=== PATIENT | male | born 1950 | race Caucasian/White ===

== ENCOUNTER 2017-03-15 15:00 | Inpatient (IN) | payer MEDICARE, OTHER ==
--- NOTE | ~2017-03-15 | EEG ---
Electroencephalogram [place] [address] [address] [place]. [address] NAME: REYNOLD PANIAGUA : 50 STATUS : DIS IN PAT#: [id number] AGE: 66 ADM/REG DATE : 03/15/17 MR#: [id number] REPORT SERV DATE: 04/02/17 DICTATED BY: DASIA TINAJERO DATE: 04/02/17 REPORT STATUS : Draft TRANSCRIBED BY: NAEL DATE: 04/02/17 ELECTROENCEPHALOGRAPHY REPORT REQUESTING PHYSICIAN: Tanya Wick M.D. INTERPRETING PHYSICIAN: Dasia Tinajero MD. AGE: 66. REASON FOR EEG: Altered mental status, rule out seizures. 23 surface electrodes, 10-20 international placement was used. The patient was noted to be poorly responsive throughout the study, restless. The background activity consisted of low voltage, 6 to 7 cycles per second scattered throughout. The patient was extremely restless. Overall the pattern showed generalized slowing biphasic and triphasic waveforms compatible with metabolic encephalopathy. Biphasic and triphasic waveforms were present throughout the recording, most prominently seen in the anterior head regions. The patient's secured entrance monitor showed sinus tachycardia, heart rate of approximately 125 beats per minute. IMPRESSION: MARKEDLY ABNORMAL EEG CHARACTERIZED BY PRESENCE OF SLOWING AND DISORGANIZATION OF CEREBRAL ACTIVITY WITH PRESENCE OF BIPHASIC AND TRIPHASIC WAVEFORMS COMPATIBLE WITH METABOLIC ENCEPHALOPATHY. CLINICAL CORRELATION IS RECOMMENDED. ANGÉLICA/NAEL Dasia Tinajero MD / [id number] CC: Tanya Wick M.D.
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
--- NOTE | ~2017-03-15 | OP ---
Record Of Operation [facility] [address]. [address] NAME: REYNOLD PANIAGUA : 50 STATUS : DIS IN PAT#: [id number] AGE: 66 ADM/REG DATE : 03/15/17 MR#: [id number] REPORT SERV DATE: 03/18/17 DICTATED BY: JORDY MADDEN DATE: 03/18/17 REPORT STATUS : Draft TRANSCRIBED BY: MODDari DATE: 03/18/17 DATE OF PROCEDURE: 03/17/2017 PREOPERATIVE DIAGNOSIS: Multiple myeloma. POSTOPERATIVE DIAGNOSIS: Multiple myeloma. PROCEDURE: Right IJ Vas-Cath. SURGEON: Jordy Madden M.D. BIOMETRICS HEAD: None. ANESTHESIA: Local. 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 He needs a Vas-Cath for plasmapheresis, so he was consented for intervention. DESCRIPTION OF PROCEDURE: After informed consent was obtained, the patient's right neck and chest were prepped and draped in the usual sterile fashion. Ultrasound-guided access was obtained of the right internal jugular vein. The ultrasound image was documented on the chart. I passed the wire centrally. I made a small skin incision. I dilated the tract and inserted the Vas-Cath. The catheter was sutured in place. After it aspirated and flushed well. The patient tolerated the procedure well without any intraprocedural complications noted. ENRIKE/NAEL Jordy Madden M.D. / [id number] CC: Tanya Wick M.D. UNKNOWN
--- NOTE | ~2017-03-15 | CN ---
Consultation Report [facility] [address] [place]. [address] NAME: REYNOLD PANIAGUA : 50 STATUS : ADM IN PAT#: [id number] AGE: 66 ADM/REG DATE : 03/15/17 MR#: [id number] REPORT SERV DATE: 03/17/17 DICTATED BY: DASIA HERRMANN DATE: 03/17/17 REPORT STATUS : Draft TRANSCRIBED BY: MODDari DATE: 03/17/17 NEUROLOGICAL CONSULTATION DATE OF CONSULTATION: 03/17/2017 LOCATION: [facility], bed 8. REASON FOR NEUROLOGICAL CONSULTATION: Acute encephalopathy, rule out seizures. HISTORY OF PRESENT ILLNESS: This is a 66-year-old white male with a known history of multiple myeloma that has been refractory to treatment, undergoing chemotherapy, treated by Dr. Bishnu Gutierrez of Oncology. The patient was found in the morning on the day of admission by his family confused. The patient apparently was difficult to arouse, was curled up in bed. It was not clear whether the patient may have taken an accidental overdose of his medications since the bottles of OxyContin and other medications were scattered around his bed. The patient apparently has been on Decadron 20 mg daily and cyclophosphamide, not clear whether he actually had started the cyclophosphamide. The patient was transferred from the regular floor to [facility] in view of confusion, agitation, and the patient was not following commands. 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 As per patient's chart, he has had radiation therapy in 2015 and additional history of hypertension, apparently not on medication. Had a history of herpes zoster in 2003, presently the patient is on Zovirax. PAST SURGICAL HISTORY: Left knee surgery in 2009, cystoscopy, bone-marrow biopsy, orthopedic surgery in the past not clear which area of the spine or extremity. SOCIAL HISTORY: The patient lost his recently to ovarian cancer. He lives alone and is retired. There is no history of smoking as per family. There is no history of alcohol or drug use. FAMILY HISTORY: Significant history of cancer in patient's mother and also history of coronary artery disease. ALLERGIES: NO KNOWN ALLERGIES. HOME MEDICATIONS: As per the patient's chart included Zovirax 400 mg b.i.d.; Decadron 20 mg for 20 days, not clear whether the patient was decreasing his dose; Zofran 4 mg p.o. b.i.d.; oxycodone 5 to 10 mg p.o. q.6 hours and total of 15 mg at bedtime for sleep; cyclophosphamide 400 mg p.o. on day 1, 8 and 15, not clear whether the patient has started it. Also the patient has been on pomalidomide 4 mg daily and repeat every 21 days. Consultation Report [place] [address] [facility] [address] NAME: REYNOLD PANIAGUA : 50 STATUS : ADM IN PAT#: [id number] AGE: 66 ADM/REG DATE : 03/15/17 MR#: [id number] REPORT SERV DATE: 03/17/17 DICTATED BY: DASIA HERRMANN DATE: 03/17/17 REPORT STATUS : Draft TRANSCRIBED BY: NAEL DATE: 03/17/17 REVIEW OF SYSTEMS: Impossible to obtain from the patient. He was confused, restless, and sedated. PHYSICAL EXAMINATION: VITAL SIGNS: Blood pressure was 114/56, pulse was 97, respirations 30, and temperature was 98.8. The patient's weight was 168.71 pounds and BMI was 21. HEAD AND NECK: Examination showed him to be normocephalic. There was no evidence of trauma. Eye exam: Sclerae were not icteric. Conjunctiva were pink. ENT exam: Tongue appeared midline. The patient was not cooperative, but was sleeping. Inspection of the oropharynx showed no evidence of atrophy of the tongue. Neck was supple. There was no Kernig or Brudzinski. Cervical range of motion appeared intact. The patient had no difficulty when he was restless moving his head from side to side. CHEST: Symmetrical. LUNGS: Appeared clear. HEART: Auscultation of the heart, the patient had sinus tachycardia with heart rate of approximately 100. ABDOMEN: Scaphoid. Bowel sounds were hyperactive. The patient had multiple loose stools. EXTREMITIES: Showed significant muscle bulk decreased, but no atrophy or fibrillation or fasciculations noted. SKIN: Appeared slightly with yellowish tinge. However, no true jaundice observed. NEUROLOGIC: The patient was sedated, restless, did not follow commands. Did not speak. Eye exam showed pupils to be small 2 to 2.5 mm, both equal, sluggishly reactive to light. Extraocular movements appear full. The patient was looking from side to side. Did not appear to have dysconjugate gaze. There was no facial asymmetry on inspection. The patient moved all four extremities with no difficulty spontaneously, however, did not follow commands. Babinski signs were not elicitable. Sensory exam: The patient withdrew to pain and stimulus appropriately. Cerebellar exam and gait could not be tested. LABORATORY STUDIES: BUN 20, creatinine 1.05, glucose 83, calcium 7.6, magnesium 2.1, phosphorus 3.9. WBC count 9.4, hemoglobin 7.3, hematocrit 21.8, and platelet count 130,000. PT/INR of 2.2. CPK 642. Troponin 0.18. TSH 3.71. Ammonia level 135. IMPRESSION: 1. Severe metabolic encephalopathy. The EEG was obtained to rule out seizures, nonconvulsive status epilepticus. I was able to review the EEG at the patient's bedside. The EEG showed signs of profound metabolic encephalopathy with diffuse slowing of biphasic and triphasic waveforms, more prominent in the anterior head regions, compatible with metabolic encephalopathy. Hyperammonemia which most likely contributes to the patient's encephalopathy. The differential also with the patient's history includes hyperviscosity syndrome secondary to his underlying cancer. 2. Progressive myeloma refractory to treatment. 3. The patient may have taken accidental overdose of his pain medications and sleeping medication- Restoril, which contributes to his hypersomnolence and confusion. The patient is being followed by Oncology. Possible plasmapheresis was discussed with the patient's family by the oncology physician. From neurological standpoint, I would Consultation Report [address] [place]. [address] NAME: REYNOLD PANIAUGA : 50 STATUS : ADM IN PAT#: [id number] AGE: 66 ADM/REG DATE : 03/15/17 MR#: [id number] REPORT SERV DATE: 03/17/17 DICTATED BY: DASIA HERRMANN DATE: 03/17/17 REPORT STATUS : Draft TRANSCRIBED BY: MODL DATE: 03/17/17 recommend to re-evaluate the patient and repeat EEG once the ammonia level shows a downward trend and if causes necessitate for EEG to be repeated. The patient does not appear to have focal neurological deficit in the patient with underlying cancer with immunosuppressive therapy on board, the patient has a risk of having an opportunistic infection including HOME HEALTH TRAVEL PT infection includes meningitis, encephalitis, and paraneoplastic syndrome. The patient's proteins were apparently very elevated. The patient's current medications include acyclovir, lactulose, Seroquel, and rifaximin, and the patient was also receiving several doses of Ativan since last night for agitation. We will follow the patient from the neurological standpoint. Thank you for allowing us to participate in this patient's care. ANGÉLICA/NAEL Dasia Herrmann MD / [id number] CC: Tanya Wick M.D. UNKNOWN
--- NOTE | ~2017-03-15 | IDS ---
Interim Discharge Summary [facility] [address] [place]. [address] NAME: REYNOLD PANIAGUA : 50 STATUS : ADM IN PAT#: [id number] AGE: 66 ADM/REG DATE : 03/15/17 MR#: [id number] REPORT SERV DATE: 03/18/17 DICTATED BY: JESUS HINKLE DATE: 03/18/17 REPORT STATUS : Draft TRANSCRIBED BY: MODL DATE: 03/18/17 ADMISSION DATE: 03/15/2017 DISCHARGE DATE: Date of transfer to [facility] is 03/16/2017. DIAGNOSES: So far, 1. 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 2. Refractory multiple myeloma, which is not responding to multiple regimens of chemotherapy. Dr. Bishnu Gutierrez is the patient's oncologist, but the patient has been seen over the weekend by Dr. Zarate. 3. Family may want to stop any more active treatment for multiple myeloma as this is refractory and they are considering comfort measures at this time. 4. 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 His mental status continues to be fairly poor; however, his respiratory status has improved as he has been on some glycopyrrolate drop that I ordered yesterday. BRIEF HOSPITAL COURSE: This patient is a very unfortunate 66-year-old gentleman with refractory multiple myeloma. He has undergone several rounds of different types of chemotherapy for this and his myeloma continues to be refractory to treatment. Dr. Bishnu Gutierrez is his oncologist. Essentially, he was admitted with acute encephalopathy and an ammonia level greater than 100 almost 135. This was noted to be because of hyperviscosity syndrome as his LFTs were not too bad. His blood cultures came back negative and he did not present a picture of septicemia at all in the beginning. However, he was transferred to [facility] as he required a lot of sedation with Ativan. He did not actually respond to Geodon or even to Haldol and had to require Ativan. While in the [facility], the patient continued to be encephalopathic and his oncologist Dr. Zarate who was covering for Dr. Gutierrez suggested that he get a plasmapheresis to see if his mental status would improve. We ordered a stat vascular consult, so that he could get a Vas-Cath for this and he did undergo plasmapheresis x1 yesterday 03/17/2017. After this, his mental status improved a little bit and according to the nurse he is a little more, even though he sedated, he is not combative. His ammonia levels have also come down after we had to put a rectal tube and give him lactulose enemas. It has come down to 87 this morning, I understand. Again, family is not sure if they will go hospice/comfort measures root only at this time, they are still in the process of trying to decide. The patient continues to be in [facility] for the reason that he is getting plasmapheresis and the number of times of plasmapheresis is to going to be dependent upon Dr. Gutierrez the oncologist suggestion and also renal suggestion. CONSULTANTS: Consults on this patient include: 1. Oncology, Dr. Bishnu Gutierrez. 2. Nephrology, Dr. Johnson Walker. Interim Discharge Summary [address] [address] NAME: REYNOLD PANIAGUA : 50 STATUS : ADM IN PAT#: [id number] AGE: 66 ADM/REG DATE : 03/15/17 MR#: [id number] REPORT SERV DATE: 03/18/17 DICTATED BY: JESUS HINKLE DATE: 03/18/17 REPORT STATUS : Draft TRANSCRIBED BY: MODL DATE: 03/18/17 3. Neurology, Dr. Dasia Herrmann for the altered mental status/acute encephalopathy itself. I am transferring this patient over to Dr. Galvan's care who is over [facility] on 03/18/2017. RRA/MODL Jesus Hinkle M.D. / [id number] CC: Jesus Hinkle M.D.
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
[2017-03-15 13:40] LABS: ER CBC TAT 0 Hrs 07 Mins; HEMATOCRIT 20.5 % (40.0-51.0); HEMOGLOBIN 6.7 g/dL (13.6-17.8); MEAN CORPUS HGB CONC 32.7 g/dL (32.0-36.0); MEAN CORPUSCULAR HEMOGLOB 30.6 pg (26.0-34.0); MEAN CORPUSCULAR VOLUME 93.6 fL (80-100); MEAN PLATELET VOLUME 8.7 fL (9.2-13.0); PLATELET COUNT 178 10/3/uL (150-400); RBC DISTRIBUTION WIDTH 18.3 % (12.0-16.0); RED CELL COUNT 2.19 10/6/uL (4.7-6.1); WHITE BLOOD CELLS 16.8 10/3/uL (4.5-10.5)
[2017-03-15 13:41] LABS: MANUAL DIFF YES %
[2017-03-15 13:46] LABS: PARTIAL THROMBO TIME 32.1 SEC (22.5-37.2); PROTIME (NOT ORD) 22.8 SEC (12.0-14.5)
[2017-03-15 13:59] LABS: CALCIUM, SERUM 7.8 MG/DL (8.5-10.4); CHEST PAIN PROFILE TAT 0 Hrs 26 Mins; CHLORIDE, SERUM 107 MMOL/L (96-112); CO2 (CARBON DIOXIDE) 23 MMOL/L (24-34); GFR AFRICAN AMERICAN 81 ML/MIN (>=60); GFR NON AFRICAN AMERICAN 70 ML/MIN (>=60); POTASSIUM, SERUM 3.8 MMOL/L (3.5-5.3); SODIUM, SERUM 136 MMOL/L (135-148); TROPONIN I 0.02 NG/ML (<0.05)
[2017-03-15 14:00] LABS: BUN (BLOOD UREA NITROGEN) 21 MG/DL (6-23); GLUCOSE, SERUM 122 MG/DL (60-99)
[2017-03-15 14:01] LABS: ACETAMINOPHEN LEVEL (TYLENOL) < 2.0 MCG/ML (10.0-20.0); ALCOHOL < 10 MG/DL (0); SALICYLATE < 1.7 MG/DL (-)
[2017-03-15 14:59] LABS: SEGMENTED NEUTROPHIL (0) 50 %; TOTAL NUCLEATED CELLS 100
[2017-03-15 15:00] LABS: BAND NEUTROPHILS 12 %; BASOPHILS 1 %; BASOPHILS ABSOLUTE (CALC) 0.17 10/3/uL (0.0-0.16); ER DIFF TAT 1 Hrs 26 Mins; IMMATURE GRANS ABSOLUTE (CALC) 1.51 10/3/uL (0.0-0.11); LYMPHOCYTES 14 %; LYMPHOCYTES ABSOLUTE (CALC) 2.35 10/3/uL (0.67-4.30); METAMYELOCYTES 7 %; MONOCYTES 12 %; MONOCYTES ABSOLUTE (CALC) 2.02 10/3/uL (0.21-1.20); MYELOCYTES 2 %; NEUTROPHILS ABSOLUTE (CALC) 10.42 10/3/uL (2.02-8.40); PLASMA CELL 2 % (0)
[~2017-03-15 15:00] MED LIST: ASAB PO; BIO-FLAX1000 MG OR; DEX4 PO; FISH OIL1200 MG PO; FORMULA PO; GINGER PO; GLUCCHONDR PO; OS500+D PO; PRILO PO; REVLIMID25 MG OR; VALTREX5 PO; VIT C PO; VIT E PO; ZOL100 PO; [UNRECOGNIZED DRUG - OTHER] PO; [UNRECOGNIZED DRUG - OTHER] PO
[2017-03-15 15:01] LABS: ANISOCYTOSIS 1+ (5-10/OIF) (0-5/OIF); MACROCYTES 1+ (5-10/OIF) (0-5/OIF); PLATELET ESTIMATE ADQ (ADEQUATE)
[2017-03-15 15:02] LABS: REACTIVE LYMPHS FEW (3-5%) (0-5%)
[2017-03-15] MEDS ORDERED: ZOFRAN4 PO (15:56)
[2017-03-15] MEDS ORDERED: CYCLOPHOSPHAMID50 MG PO (15:56)
[2017-03-15] MEDS ORDERED: DEX4 PO (16:02)
[2017-03-15] MEDS ORDERED: OXYCOD PO (16:02)
[2017-03-15] MEDS ORDERED: POMALYST4 MG PO (16:04)
[2017-03-15] MEDS ORDERED: ZOVIRAX400 MG PO (16:05)
[2017-03-15] MEDS ORDERED: REST15 PO (16:07)
[2017-03-15 16:27] LABS: AMPHETAMINES (NOT ORD) NEG (NEG); BARBITURATES (NOT ORDERED NEG (NEG); BENZODIAZEPINES (NOT ORD) POS (NEG); CANNABINOIDS (THC) NEG (NEG); COCAINE (NOT ORDERED) NEG (NEG); OPIATES POS (NEG); PHENCYCLIDINE(PCP) NEG (NEG); TRICYCLICS NEG (NEG)
[2017-03-15 22:13] LABS: ALBUMIN 1.4 G/DL (3.5-5.0); ALKALINE PHOSPHATASE 60 U/L (45-117); FERRITIN 753 NG/ML (26-388); FREE T4 1.17 NG/DL (0.76-1.46); IRON BINDING CAPACITY 119 MCG/DL (250-450); IRON, SERUM 101 MCG/DL (35-150); PHOSPHORUS, SERUM 3.2 MG/DL (2.5-4.5); SGOT(AST) 171 U/L (5-40); SGPT(ALT) 25 U/L (5-65); TOTAL PROTEIN 13.2 G/DL (6.0-8.5)
[2017-03-15 22:14] LABS: ASCORBIC ACID (UR NOT ORDER) NEG (NEG); BILIRUBIN, URINE NEGATIVE (NEG); KETONE, URINE NEGATIVE (NEG); LEUKOCYTE ESTERASE(NOT OR NEG (NEG); WBC (NOT ORDERED) (RFLEX) 1 (0-5)
[2017-03-15 22:14] LABS: DIRECT BILIRUBIN < 0.1 MG/DL (0.0-0.4); FOLATE 4.4 NG/ML (>5.2); INDIRECT BILIRUBIN(NOT ORDER) 0.2 MG/DL (0.1-0.9); TOTAL BILIRUBIN 0.3 MG/DL (0-1.2)
[2017-03-15 23:01] LABS: PROCALCITONIN 0.33 ng/mL (<0.5)
[2017-03-16 06:20] LABS: INTERNATIONAL NORMAL RATI 2.2 UNITS (-); PROTIME (NOT ORD) 24.1 SEC (12.0-14.5)
[2017-03-16 06:25] LABS: FIBRINOGEN 139 MG/DL (230-462)
[2017-03-16 06:38] LABS: ALBUMIN 1.5 G/DL (3.5-5.0); ALKALINE PHOSPHATASE 54 U/L (45-117); BUN (BLOOD UREA NITROGEN) 21 MG/DL (6-23); CALCIUM, SERUM 7.7 MG/DL (8.5-10.4); CHLORIDE, SERUM 103 MMOL/L (96-112); CO2 (CARBON DIOXIDE) 23 MMOL/L (24-34); CPK 642 U/L (0-200); CREATININE 1.09 MG/DL (0.70-1.30); GFR AFRICAN AMERICAN 82 ML/MIN (>=60); GFR NON AFRICAN AMERICAN 70 ML/MIN (>=60); GLUCOSE, SERUM 100 MG/DL (60-99); PHOSPHORUS, SERUM 3.9 MG/DL (2.5-4.5); POTASSIUM, SERUM 3.8 MMOL/L (3.5-5.3); SGOT(AST) 174 U/L (5-40); SGPT(ALT) 25 U/L (5-65); SODIUM, SERUM 133 MMOL/L (135-148); TOTAL PROTEIN 12.3 G/DL (6.0-8.5)
[2017-03-16 06:39] LABS: CK-MB 4.6 NG/ML; DIRECT BILIRUBIN 0.2 MG/DL (0.0-0.4); INDIRECT BILIRUBIN(NOT ORDER) 0.6 MG/DL (0.1-0.9); TOTAL BILIRUBIN 0.8 MG/DL (0-1.2); TROPONIN I 0.18 NG/ML (<0.05)
[2017-03-16 06:48] LABS: HEMOGLOBIN 7.9 g/dL (13.6-17.8); MEAN CORPUS HGB CONC 33.2 g/dL (32.0-36.0); MEAN CORPUSCULAR HEMOGLOB 30.4 pg (26.0-34.0); MEAN CORPUSCULAR VOLUME 91.5 fL (80-100); MEAN PLATELET VOLUME 9.2 fL (9.2-13.0); NUCLEATED RED BLOOD CELLS 1.5 /100WBC (0-0); PLATELET COUNT 154 10/3/uL (150-400); WHITE BLOOD CELLS 13.1 10/3/uL (4.5-10.5)
[2017-03-16 06:52] LABS: HEMATOCRIT 23.8 % (40.0-51.0); MANUAL DIFF YES %
[2017-03-16 07:38] LABS: RETICULOCYTE COUNT ABSOLUTE 51.1 10/3/uL (20.2-119.8)
[2017-03-16 07:58] LABS: BAND NEUTROPHILS 16 %; EOSINOPHILS 2 %; EOSINOPHILS ABSOLUTE (CALC) 0.26 10/3/uL (0.0-0.53); IMMATURE GRANS ABSOLUTE (CALC) 1.44 10/3/uL (0.0-0.11); LYMPHOCYTES 20 %; LYMPHOCYTES ABSOLUTE (CALC) 2.62 10/3/uL (0.67-4.30); METAMYELOCYTES 8 %; MONOCYTES 12 %; MONOCYTES ABSOLUTE (CALC) 1.57 10/3/uL (0.21-1.20); MYELOCYTES 3 %; NEUTROPHILS ABSOLUTE (CALC) 7.21 10/3/uL (2.02-8.40); SEGMENTED NEUTROPHIL (0) 39 %; TOTAL NUCLEATED CELLS 100
[2017-03-16 07:59] LABS: ANISOCYTOSIS 1+ (5-10/OIF) (0-5/OIF); PLATELET ESTIMATE ADQ (ADEQUATE); POLYCHROMASIA 1+ (2-5/OIF) (0-1/OIF); TEARDROP SHAPED RBCS OCC (0-2/OIF)
[2017-03-16 08:00] LABS: HELMET CELLS OCC (0-2/OIF)
[2017-03-16 17:05] LABS: HEMATOCRIT 22.6 % (40.0-51.0); HEMOGLOBIN 7.6 g/dL (13.6-17.8)
[2017-03-16 17:29] LABS: T PROTEIN (ELECT)(NOT OR 12.3 G/DL (6.0-8.5)
[2017-03-17 05:34] LABS: HEMATOCRIT 21.8 % (40.0-51.0); HEMOGLOBIN 7.3 g/dL (13.6-17.8); MEAN CORPUS HGB CONC 33.5 g/dL (32.0-36.0); MEAN CORPUSCULAR HEMOGLOB 30.7 pg (26.0-34.0); MEAN CORPUSCULAR VOLUME 91.6 fL (80-100); MEAN PLATELET VOLUME 9.2 fL (9.2-13.0); NUCLEATED RED BLOOD CELLS 2.3 /100WBC (0-0); PLATELET COUNT 130 10/3/uL (150-400); RBC DISTRIBUTION WIDTH 18.1 % (12.0-16.0); RED CELL COUNT 2.38 10/6/uL (4.7-6.1); WHITE BLOOD CELLS 9.4 10/3/uL (4.5-10.5)
[2017-03-17 05:36] LABS: MANUAL DIFF YES %
[2017-03-17 05:38] LABS: A/G RATIO 0.1 (0.7-1.9); ALBUMIN 1.4 G/DL (3.5-5.0); ALKALINE PHOSPHATASE 52 U/L (45-117); BUN (BLOOD UREA NITROGEN) 20 MG/DL (6-23); CALCIUM, SERUM 7.6 MG/DL (8.5-10.4); CHLORIDE, SERUM 108 MMOL/L (96-112); CO2 (CARBON DIOXIDE) 24 MMOL/L (24-34); CREATININE 1.05 MG/DL (0.70-1.30); GFR AFRICAN AMERICAN 85 ML/MIN (>=60); GFR NON AFRICAN AMERICAN 74 ML/MIN (>=60); GLOBULIN 9.9 G/DL (2.5-4.1); GLUCOSE, SERUM 83 MG/DL (60-99); POTASSIUM, SERUM 3.5 MMOL/L (3.5-5.3); SGOT(AST) 150 U/L (5-40); SGPT(ALT) 23 U/L (5-65); SODIUM, SERUM 134 MMOL/L (135-148); TOTAL BILIRUBIN 0.7 MG/DL (0-1.2); TOTAL PROTEIN 11.3 G/DL (6.0-8.5)
[2017-03-17 06:32] LABS: BAND NEUTROPHILS 13 %; EOSINOPHILS 2 %; EOSINOPHILS ABSOLUTE (CALC) 0.19 10/3/uL (0.0-0.53); IMMATURE GRANS ABSOLUTE (CALC) 0.38 10/3/uL (0.0-0.11); LYMPHOCYTES 15 %; LYMPHOCYTES ABSOLUTE (CALC) 1.41 10/3/uL (0.67-4.30); METAMYELOCYTES 3 %; MONOCYTES 1 %; MONOCYTES ABSOLUTE (CALC) 0.09 10/3/uL (0.21-1.20); MYELOCYTES 1 %; NEUTROPHILS ABSOLUTE (CALC) 7.33 10/3/uL (2.02-8.40); SEGMENTED NEUTROPHIL (0) 65 %; TOTAL NUCLEATED CELLS 100
[2017-03-17 06:33] LABS: ANISOCYTOSIS 1+ (5-10/OIF) (0-5/OIF); PLATELET ESTIMATE SLT DEC (ADEQUATE)
[2017-03-17 12:50] LABS: HEMATOCRIT 23.4 % (40.0-51.0); HEMOGLOBIN 7.6 g/dL (13.6-17.8)
[2017-03-17 16:01] LABS: HEMATOCRIT 24.8 % (40.0-51.0); HEMOGLOBIN 7.9 g/dL (13.6-17.8)
[2017-03-18 05:06] LABS: HEMOGLOBIN 9.2 g/dL (13.6-17.8); MEAN CORPUS HGB CONC 32.5 g/dL (32.0-36.0); MEAN CORPUSCULAR HEMOGLOB 30.9 pg (26.0-34.0); MEAN PLATELET VOLUME 10.2 fL (9.2-13.0); RBC DISTRIBUTION WIDTH 18.3 % (12.0-16.0); WHITE BLOOD CELLS 7.3 10/3/uL (4.5-10.5)
[2017-03-18 05:07] LABS: HEMATOCRIT 28.3 % (40.0-51.0); MANUAL DIFF YES %; PLATELET COUNT 80 10/3/uL (150-400); RED CELL COUNT 2.98 10/6/uL (4.7-6.1)
[2017-03-18 05:17] LABS: CALCIUM, SERUM 7.7 MG/DL (8.5-10.4); CHLORIDE, SERUM 120 MMOL/L (96-112); CO2 (CARBON DIOXIDE) 20 MMOL/L (24-34); CREATININE 0.91 MG/DL (0.70-1.30); GFR AFRICAN AMERICAN 101 ML/MIN (>=60); GFR NON AFRICAN AMERICAN 88 ML/MIN (>=60); SGPT(ALT) 17 U/L (5-65); TOTAL BILIRUBIN 0.7 MG/DL (0-1.2)
[2017-03-18 05:19] LABS: A/G RATIO 0.5 (0.7-1.9); ALBUMIN 3.1 G/DL (3.5-5.0); ALKALINE PHOSPHATASE 34 U/L (45-117); BUN (BLOOD UREA NITROGEN) 28 MG/DL (6-23); GLOBULIN 5.7 G/DL (2.5-4.1); GLUCOSE, SERUM 155 MG/DL (60-99); POTASSIUM, SERUM 5.3 MMOL/L (3.5-5.3); SGOT(AST) 77 U/L (5-40); SODIUM, SERUM 147 MMOL/L (135-148); TOTAL PROTEIN 8.8 G/DL (6.0-8.5)
[2017-03-18 06:04] LABS: ANISOCYTOSIS 1+ (5-10/OIF) (0-5/OIF); BAND NEUTROPHILS 18 %; EOSINOPHILS 2 %; EOSINOPHILS ABSOLUTE (CALC) 0.15 10/3/uL (0.0-0.53); IMMATURE GRANS ABSOLUTE (CALC) 0.22 10/3/uL (0.0-0.11); LYMPHOCYTES 9 %; LYMPHOCYTES ABSOLUTE (CALC) 0.66 10/3/uL (0.67-4.30); METAMYELOCYTES 2 %; MONOCYTES 5 %; MONOCYTES ABSOLUTE (CALC) 0.37 10/3/uL (0.21-1.20); MYELOCYTES 1 %; NEUTROPHILS ABSOLUTE (CALC) 5.91 10/3/uL (2.02-8.40); PLATELET ESTIMATE DEC (ADEQUATE); POLYCHROMASIA 1+ (2-5/OIF) (0-1/OIF); SEGMENTED NEUTROPHIL (0) 63 %; TOTAL NUCLEATED CELLS 100
[2017-03-18 09:51] LABS: A/G 0.22 RATIO (0.9-2.10); ABNORMAL PEAK 1 7.46 G/DL; ABNORMAL PEAK 1 % 60.7 % (0); ALB RELATIVE % 18.1 % (60.0-89.0); ALBUMIN (ELECTRO) 2.23 GM/DL (3.2-5.5); ALPHA 1 (ELECTRO) 0.34 GM/DL (0.1-0.4); ALPHA 1 RELAT % (NOT ORD) 2.8 % (1.0-4.0); ALPHA 2 (ELECTRO) 1.01 GM/DL (0.5-1.10); ALPHA 2 RELAT % 8.2 % (4.5-26.0); BETA GLOBULIN (SPE) 0.93 GM/DL (0.60-1.30); BETA RELATIVE % 7.6 % (9.0-22.0); GAMMA GLOBULIN (SPE) 7.79 G/DL (0.70-1.60); GAMMA RELAT % 63.3 % (6.0-22.0)
== END 2017-03-18 20:04 | disposition hospice, inpatient (51) | DRG 71 ==
LOC: ER 15:00 → 6NO 17:40 → IMCU 03-16 18:43 → 4EA 03-18 13:19
PROVIDERS: Emergency Medicine; Internal Medicine; Internal Medicine Hematology & Oncology
PROC: 30233N1 Transfusion of Nonautologous Red Blood Cells into Peripheral Vein, Percutaneous Approach (ICD-10-PCS; 2017-03-15)
PROC: 30233K1 Transfusion of Nonautologous Frozen Plasma into Peripheral Vein, Percutaneous Approach (ICD-10-PCS; 2017-03-16)
PROC: 6A550Z3 Pheresis of Plasma, Single (ICD-10-PCS; 2017-03-17)
PROC: 05HM33Z Insertion of Infusion Device into Right Internal Jugular Vein, Percutaneous Approach (ICD-10-PCS; principal; 2017-03-18)
PROC: B543ZZA Ultrasonography of Right Jugular Veins, Guidance (ICD-10-PCS; 2017-03-18)
DX: G93.41 Metabolic encephalopathy (principal); C90.00 Multiple myeloma not having achieved remission; I10 Essential (primary) hypertension; Z66 Do not resuscitate; Z92.3 Personal history of irradiation
CPT/HCPCS: 36415; 36430; 36514; 70450; 71010; 80048; 80053; 80069; 80076; 80305; 80307; 81001; 82140; 82330; 82550; 82553; 82607; 82728; 82746; 83540; 83550; 83605; 83735; 84100; 84145; 84155; 84165; 84439; 84443; 84484; 85014; 85018; 85025; 85045; 85384; 85610; 85730; 85810; 86850; 86900; 86901; 86920; 93005; 94640; 95816; 95819; 99285; A9270-GY; C9113; J0456; J0610; J1200; J1626; J1630; J3475; J3480; J3486; P9016; P9045; P9059

== ENCOUNTER 2017-03-18 20:17 | Inpatient (IN) | payer OTHER ==
--- NOTE | ~2017-03-18 | DS ---
Discharge Summary [facility] [address] [facility] [place]. [address] NAME: REYNOLD PANIAGUA : 50 STATUS : DIS IN PAT#: [id number] AGE: 66 ADM/REG DATE : 03/18/17 MR#: [id number] REPORT SERV DATE: 03/26/17 DICTATED BY: JOSE ANGEL CJEA DATE: 03/25/17 REPORT STATUS : Draft TRANSCRIBED BY: MODL DATE: 03/25/17 ADMISSION DATE: 03/18/2017 DISCHARGE DATE: 03/19/2017 The patient was originally admitted on 03/15/2017 and a 66-year-old gentleman with multiple myeloma, getting chemotherapy, became increasingly confused. He was brought to the hospital, otherwise pretty negative medical history. His calcium was low at 7.8, white count was elevated at 16.8 with 12% bands suggestive of an infection. The patient was felt to be acute toxic metabolic or toxic encephalopathy, also a coagulopathy. The patient was a full code on admission. This was subsequently changed to DNR. On the evening of the , it was decided to pursue just comfort care. The patient was moved to [facility] for GIP that was done in the evening of the and the patient on the morning of the at 0925 hours before I could get over to actually see him. Final cause of is multiple myeloma. DICTATED BY: Jose Angel Ceja MD GP/NAEL Jose Angel Ceja MD / [id number] CC: Jose Angel Ceja MD
[~2017-03-18 20:17] MED LIST changes: +CYCLOPHOSPHAMID50 MG PO; +OXYCOD PO; +POMALYST4 MG PO; +REST15 PO; +ZOFRAN4 PO; +ZOVIRAX400 MG PO
== END 2017-03-19 12:50 | disposition expired | DRG 840 ==
LOC: 4EA 20:17
DX: C90.00 Multiple myeloma not having achieved remission (principal); G92 Toxic encephalopathy; Z66 Do not resuscitate; Z51.5 Encounter for palliative care
CPT/HCPCS: A9270-GY; J1630